=== PATIENT | female | born 1980 | race Hispanic/Latino ===

== ENCOUNTER 2018-12-25 15:12 | Emergency (ER) | payer MEDICAID, OTHER ==
[2018-12-25 16:50] LABS: RAPID GROUP A STREP NEGATIVE (NEGATIVE)
[2018-12-25] MEDS ORDERED: IPRATROPIUM/ALBUTEROL SULFATE 3 ML SOLUTION IH ONE (17:46)
== END 2018-12-25 17:58 | disposition home or self-care (01) ==
LOC: EDH 15:12
DX: J20.9 Acute bronchitis, unspecified (principal); J45.909 Unspecified asthma, uncomplicated; Z88.0 Allergy status to penicillin
CPT/HCPCS: 71046; 87804; 87880

== ENCOUNTER 2019-04-26 09:38 | Emergency (ER) | payer OTHER ==
[2019-04-26] MEDS ORDERED: FAMOTIDINE 20MG TAB 20 MG TAB ONE (10:08)
[2019-04-26] MEDS ORDERED: DEXAMETHASONE SOD PHOSPHATE 10MG/ML 1ML VIAL ONE (10:08)
== END 2019-04-26 11:11 | disposition home or self-care (01) ==
LOC: EDH 09:38
DX: T78.49XA Other allergy, initial encounter (principal); L50.9 Urticaria, unspecified; J45.909 Unspecified asthma, uncomplicated; Z88.0 Allergy status to penicillin; X58.XXXA Exposure to other specified factors, initial encounter
CPT/HCPCS: 96372; 99283; J1100